=== PATIENT | female | born 1960 ===

== ENCOUNTER 2023-11-12 10:51 | Inpatient (IN) | payer OTHER ==
[~2023-11-12] VITALS: Ht 152.4 cm; Wt 57.6 kg
[~2023-11-12 10:51] MED LIST: ATENOLOL25 MG
[2023-11-12 11:40] VITALS: BP 133/72
[2023-11-12] MEDS ORDERED: LEVOTHYROXINE25 MCG PO (11:40)
[2023-11-18] MEDS ORDERED: CEFAZOLIN SODIUM 1,000 MG VIAL ONE (12:48)
[2023-11-18] MEDS ORDERED: BUPIVACAINE HCL/MPF 0.5% 30ML VIAL ONE (12:58)
[2023-11-18] MEDS ORDERED: POVIDONE-IODINE 118 ML BOTT TOP ONE (12:59)
[2023-11-18] MEDS ORDERED: MORPHINE SULFATE 4 MG/ML VIAL IV PRN (15:45)
[2023-11-18] MEDS ORDERED: ONDANSETRON HCL 2 MG/ML VIAL IV PRN (15:45)
[2023-11-18] MEDS ORDERED: RINGERS SOLUTION,LACTATED 1,000 ML IV SCH (15:45)
[2023-11-18] MEDS ORDERED: MORPHINE SULFATE 4 MG,MORPHINE SULFATE 2 MG IV PRN (17:00)
[2023-11-18] MEDS ORDERED: ENALAPRILAT DIHYDRATE 1.25 MG/ML VIAL IV PRN (17:15)
[2023-11-18 17:33] VITALS: BP 133/72
[2023-11-18] MEDS ORDERED: CEFAZOLIN SODIUM 1,000 MG VIAL IV SCH (18:00)
[2023-11-18 20:31] LABS: HEMATOCRIT 36.5 % (36.0-45.00); HEMOGLOBIN 12.3 g/dL (12.0-15.00); MEAN CELL VOLUME 87.7 fL (80.00-100.00); MEAN CORPUSCULAR HEMOGLOBIN 29.5 pg (27.00-32.0); MEAN CORPUSCULAR HGB CONC 33.7 g/dl (32.0-36.0); PLATELET COUNT 382 K/uL (150-450); RED BLOOD COUNT 4.16 M/uL (4.00-6.00); RED CELL DISTRIBUTION WIDTH 13.4 % (11.5-14.5)
[2023-11-18 21:22] VITALS: BP 111/66
[2023-11-19 00:16] VITALS: BP 111/66
[2023-11-19 04:30] VITALS: BP 101/61
[2023-11-19] MEDS ORDERED: PATIENTS OWN MEDICATION (MEDICAMENTO EN PISO) PO SCH (06:00)
[2023-11-19] MEDS ORDERED: IBU800 MG PO (07:08)
[2023-11-19] MEDS ORDERED: NEURONTIN300 MG PO (07:09)
[2023-11-19] MEDS ORDERED: SULFAMETHOXAZOL20 ML PO (07:10)
[2023-11-19] MEDS ORDERED: DULCOLAX STOOL100 M1 PO (07:10)
[2023-11-19 08:44] VITALS: BP 111/64
[2023-11-19] MEDS ORDERED: ATENOLOL 50 MG TABLET PO SCH ×2 (09:00→21:00)
[2023-11-19] MEDS ORDERED: ENOXAPARIN SODIUM 40 MG/0.4 ML SYRINGE SUBCUTANEO SCH (09:00)
== END 2023-11-19 11:03 | disposition home or self-care (01) | DRG 743 ==
LOC: O/R 11-18 07:40 → SURG 11-18 11:45 → OB/GYN 11-18 17:03
PROVIDERS: ADMIT Obstetrics & Gynecology Gynecology; ATTEND Obstetrics & Gynecology Gynecology
PROC: 0UT9FZZ Resection of Uterus, Via Natural or Artificial Opening With Percutaneous Endoscopic Assistance (ICD-10-PCS; 2023-11-18)
PROC: 0UT7FZZ Resection of Bilateral Fallopian Tubes, Via Natural or Artificial Opening With Percutaneous Endoscopic Assistance (ICD-10-PCS; 2023-11-18)
PROC: 0JQC0ZZ Repair Pelvic Region Subcutaneous Tissue and Fascia, Open Approach (ICD-10-PCS; 2023-11-18)
PROC: 0USG4ZZ Reposition Vagina, Percutaneous Endoscopic Approach (ICD-10-PCS; 2023-11-18)
PROC: 0UT2FZZ Resection of Bilateral Ovaries, Via Natural or Artificial Opening With Percutaneous Endoscopic Assistance (ICD-10-PCS; principal; 2023-11-18 12:15)
DX: N80.03 Adenomyosis of the uterus (principal); N81.3 Complete uterovaginal prolapse; Z20.822 Contact with and (suspected) exposure to COVID-19